=== PATIENT | male | born 2005 | race Caucasian/White ===

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

== ENCOUNTER 2024-06-14 11:45 | Outpatient (REF) | payer SELFPAY ==
[2024-06-14 13:09] LABS: MANUAL DIFF FLAG NO
[2024-06-14 13:23] LABS: Basophils Percent Auto 0.8 % (0-2); Eosinophils Absolute Auto 0.2 X10*3/uL (0.0-0.4); Eosinophils Percent Auto 4.3 % (0-4); Hemoglobin 15.7 g/dl (14.0-18.0); Imm Gran Abs Auto 0.01 X10*3/uL (0.00-0.03); Imm Gran Pct Auto 0.2 % (0.0-0.4); Lymphocytes Absolute Auto 1.7 X10*3/uL (1.2-4.9); Lymphocytes Percent Auto 34.6 % (20-40); Mean Corpuscular HGB Conc 34.9 g/dl (31.0-36.0); Mean Corpuscular Hemoglobin 30.3 pg (27.0-33.0); Mean Corpuscular Volume 86.9 fL (80.0-98.0); Mean Platelet Volume 9.8 fL (9.4-12.4); Monocytes Absolute Auto 0.4 X10*3/uL (0.1-1.2); Monocytes Percent Auto 8.4 % (2-11); Neutrophils Absolute Auto 2.5 x10*3/uL (2.0-8.3); Neutrophils Percent Auto 51.7 % (45-73); Platelet Count 258 X10*3/uL (160-400); Red Blood Count 5.18 X10*6/uL (4.60-5.80); Red Cell Distribution Width 12.2 % (11.0-16.0); White Blood Count 4.9 X10*3/uL (4.8-10.8)
[2024-06-14 13:57] LABS: Iron 101 mcg/dL (45-160); Percent Iron Saturation 31 % (15-50); Total Iron Binding Capacity 323 mcg/dL (228-428); Unsaturated Iron Binding 222 ug/dL
[2024-06-14 14:03] LABS: Folate 8.5 ng/mL (> or = 4.0); Vitamin B12 330 pg/mL (200-900); Vitamin D 25-OH Total 47.5 ng/mL (>30)
[2024-06-15 08:24] LABS: HIV Num 1 2.48 S/CO (0.00-0.99)
[2024-06-15 10:27] LABS: HIV AB/AG Nonreactive (Nonreactive); HIV Num 2 0.08 S/CO; HIV Num 3 0.08 S/CO
== END 2024-06-14 11:46 | disposition home or self-care (01) ==
LOC: HO.HHCL 11:45
PROVIDERS: Visit Provider Emergency Medicine
DX: K12.0 Recurrent oral aphthae (principal)
CPT/HCPCS: 36415; 82306; 82607; 82746; 83540; 85025; 87389

== ENCOUNTER → 2024-06-15 09:00 | Outpatient (BNVA) | payer SELFPAY | PROVIDERS: PCP Nurse Practitioner Family; Visit Provider Physician Assistant Medical | DX: Z02.79 Encounter for issue of other medical certificate (principal) ==

== ENCOUNTER 2025-02-17 13:13 | Emergency (ER) | payer MEDICAID, SELFPAY ==
--- NOTE | ~2025-02-17 | CT_ITS ---
CLINICAL HISTORY: rlq pain CT abdomen and pelvis without IV contrast. COMPARISON: None FINDINGS: Partially visualized lung bases are unremarkable. Normal gallbladder. Noncontrast appearance of the liver, spleen, pancreas and adrenal glands are unremarkable. No hydronephrosis or hydroureter. No renal or ureteral calculus. Appendix is normal in caliber measuring up to 4 mm. No periappendiceal or pericecal inflammatory changes. Mild colonic stool burden. No bowel obstruction. Several normal-sized and prominent mesenteric lymph nodes most pronounced along the mesenteric root and in the right lower quadrant. Normal abdominal aorta. Urinary bladder is unremarkable given degree of distention. No inguinal lymphadenopathy. No acute fracture or suspicious bone lesion. IMPRESSION: 1. No evidence of renal obstruction. No renal or ureteral calculus bilaterally. 2. No evidence of appendicitis. 3. Multiple normal-sized and prominent mesenteric lymph nodes most pronounced along the mesenteric root and in the right lower quadrant. Nonspecific findings can be associated with an underlying infectious or inflammatory process. This document has been electronically signed by: Willam Sandhu MD on 02/17/2025 17:10:17
[2025-02-17 13:17] VITALS: BP 123/89; BP 132/84; PULSE 75; PULSE 90; RESP 22; TEMP 36.9; O2SAT 100; O2SAT 98; BMI 20.6
--- NOTE | 2025-02-17 13:19 | ED_ITS ---
HPI - Abdominal Pain General Chief Complaint: Abdominal Pain Stated Complaint: SEVERE LOWER RT ABD PAIN X 20 MINUTES PER EMS Time Seen by Provider: 02/17/25 14:17 Related Data Allergies Allergy/AdvReac Type Severity Reaction Status Date / Time No Known Allergies Allergy Verified 02/17/25 13:21 [facility] Social History Social History Alcohol intake: current Alcohol intake frequency: a few times a week Smoked in Last 30 Days: No Use of substances other than those prescribed or required for medical reasons: Yes Substance Use Type: Marijuana Advance Directives: No Advance Directives Information Provided: No Physical Exam ED Vital Signs: Vital Signs - 24 hr 02/17/25 13:17 02/17/25 14:46 Temperature 98.5 F Pulse Rate 90 63 Respiratory Rate 22 H 16 Blood Pressure 123/89 106/60 Pulse Oximetry 100 96 Oxygen Delivery Method Room Air Room Air BMI result Body Mass Index 20.6 Course Course Course Narrative: This is a Rapid Medical Exam performed in triage by Sofya Montgomery PA-C. Full HPI, ROS and PE to be performed by primary ED provider. 19 yo F presenting to the ED via EMS c/o RLQ abd pain [id number] described as stabbing with assoc N/V. States was driving [place] [employer] when pain started. Denies testicular pain at present, however states did have testicular pain when pain initially started PE: uncomfortable, abd soft w/RLQ ttp Plan: labs, UA Medical Decision Making Lab Data 02/17/25 13:31 02/17/25 13:31 Labs: Lab Results 02/17/25 02/17/25 Range/Units 13:31 14:49 WBC 5.6 (4.8-10.8) X10*3/uL RBC 5.52 (4.60-5.80) X10*6/uL Hgb 16.5 (14.0-18.0) g/dl Hct 46.0 (42.0-52.0) % MCV 83.3 (80.0-98.0) fL MCH 29.9 (27.0-33.0) pg MCHC 35.9 (31.0-36.0) g/dl RDW 12.4 (11.0-16.0) % Plt Count 313 (160-400) X10*3/uL MPV 8.7 L (9.4-12.4) fL Immature Gran % (Auto) 0.4 (0.0-0.4) % Neut % (Auto) 53.2 (45-73) % Lymph % (Auto) 35.8 (20-40) % [place] % (Auto) 7.4 (2-11) % Eos % (Auto) 2.3 (0-4) % Baso % (Auto) 0.9 (0-2) % Lymph # (Auto) 2.0 (1.2-4.9) X10*3/uL [place] # (Auto) 0.4 (0.1-1.2) X10*3/uL Eos # (Auto) 0.1 (0.0-0.4) X10*3/uL Baso # (Auto) 0.1 (0.0-0.2) X10*3/uL Abs Immat Gran (auto) 0.02 (0.00-0.03) X10*3/uL Absolute Neuts (auto) 3.0 (2.0-8.3) x10*3/uL Absolute Nucleated RBC 0.000 (0.0-0.012) X10*3/uL Nucleated RBC % (auto) 0.0 (0.0-0.2) /100WBC Sodium 141 (135-145) mmol/L Potassium 3.5 (3.3-5.1) mmol/L Chloride 108 (96-108) mmol/L Carbon Dioxide 22 (22-29) mmol/L Anion Gap 15 (12-20) BUN 13 (9-16) mg/dL Creatinine 0.84 (0.5-1.4) mg/dL Estim Creat Clear Calc 111.3 Estimated GFR > 60 Random Glucose 99 (60-115) mg/dL Calcium 9.5 (8.4-10.2) mg/dL Magnesium 1.7 (1.6-2.6) mg/dL Total Bilirubin 0.5 (0.0-1.0) mg/dL Direct Bilirubin 0.2 (0.0-0.5) mg/dL AST 37 (5-37) U/L ALT 65 H (0-40) U/L Alkaline Phosphatase 112 (39-117) U/L Total Protein 7.5 (6.5-8.0) g/dL Albumin 4.6 (3.5-5.0) g/dL Lipase 30 (8-78) U/L Urine Color Yellow Urine Appearance Clear Urine pH >= 9.0 (5.0-9.0) Ur Specific [place] 1.020 (1.005-1.025) Urine Protein 30 (1+) H (Neg-Trace) mg/dL Urine Glucose (UA) Negative (Negative) mg/dL Urine Ketones 15 (Negative) mg/dL Urine Blood Small (1+) H (Negative) Urine Nitrite Negative (Negative) Ur Leukocyte Esterase Negative (Negative) Urine RBC >20 H (0-2) /HPF Urine WBC 6-10 H (0-5) /HPF Ur Squamous Epith Cells 0-2 (0-2) /HPF Urine Bacteria None Seen (None Seen) Hyaline Casts 0-2 (0-2) /LPF Discharge Plan Discharge Clinical Impression: Abdominal pain Patient Disposition: Left W/O Completing Treatment Discharge Date/Time: 02/17/25 16:53
[2025-02-17 13:36] LABS: MANUAL DIFF FLAG NO
[2025-02-17 13:39] LABS: Basophils Absolute Auto 0.1 X10*3/uL (0.0-0.2); Basophils Percent Auto 0.9 % (0-2); Eosinophils Absolute Auto 0.1 X10*3/uL (0.0-0.4); Eosinophils Percent Auto 2.3 % (0-4); Hemoglobin 16.5 g/dl (14.0-18.0); Imm Gran Abs Auto 0.02 X10*3/uL (0.00-0.03); Imm Gran Pct Auto 0.4 % (0.0-0.4); Lymphocytes Percent Auto 35.8 % (20-40); Mean Corpuscular HGB Conc 35.9 g/dl (31.0-36.0); Mean Corpuscular Hemoglobin 29.9 pg (27.0-33.0); Mean Corpuscular Volume 83.3 fL (80.0-98.0); Mean Platelet Volume 8.7 fL (9.4-12.4); Monocytes Absolute Auto 0.4 X10*3/uL (0.1-1.2); Monocytes Percent Auto 7.4 % (2-11); Neutrophils Percent Auto 53.2 % (45-73); Platelet Count 313 X10*3/uL (160-400); Red Blood Count 5.52 X10*6/uL (4.60-5.80); Red Cell Distribution Width 12.4 % (11.0-16.0); White Blood Count 5.6 X10*3/uL (4.8-10.8)
[2025-02-17 13:54] LABS: Alanine Aminotransferase 65 U/L (0-40); Albumin Level 4.6 g/dL (3.5-5.0); Alkaline Phosphatase 112 U/L (39-117); Anion Gap 15 (12-20); Aspartate Amino Transferase 37 U/L (5-37); Bilirubin Direct 0.2 mg/dL (0.0-0.5); Bilirubin Total 0.5 mg/dL (0.0-1.0); Blood Urea Nitrogen 13 mg/dL (9-16); Calcium 9.5 mg/dL (8.4-10.2); Carbon Dioxide 22 mmol/L (22-29); Chloride 108 mmol/L (96-108); Creatinine Clr Calc Pharmacy 111.3; Estimated Glomerular Filt Rate > 60; Glucose Random 99 mg/dL (60-115); Lipase 30 U/L (8-78); Magnesium 1.7 mg/dL (1.6-2.6); Potassium 3.5 mmol/L (3.3-5.1); Sodium 141 mmol/L (135-145); Total Protein 7.5 g/dL (6.5-8.0)
[2025-02-17 14:46] VITALS: BP 106/60; PULSE 63; RESP 16; O2SAT 96
[2025-02-17 14:56] LABS: Appearance Urine Clear; Color Urine Yellow; Glucose Urine UA Negative (Negative); Leukocyte Esterase Urine Negative (Negative); Nitrite Urine Negative (Negative); PH >= 9.0 (5.0-9.0); UMIC TRIGGER UACC YES; Urine Blood Small (1+) (Negative); Urine Ketones 15 mg/dL (Negative); Urine Protein 30 (1+) mg/dL (Neg-Trace)
[2025-02-17 14:58] LABS: Bacteria Urine None Seen (None Seen); Hyaline Casts Urine 0-2 /LPF (0-2); RBC Urine >20 /HPF (0-2); Squamous Epithelial Cell Urine 0-2 /HPF (0-2); UACC Culture Trigger YES
--- NOTE | 2025-02-17 16:52 | PC.NURSE ---
Patient requesting to leave , does not want to wait for CT results. Provider aware.
--- NOTE | 2025-02-17 16:52 | PC.NURSE ---
Patient stating he is not waiting an longer and needs to leave. Provider stating he is not discharging patient. Patient exited facility
--- OUTSIDE RECORDS SUMMARY | 2025-02-17 17:39 | XMS_ITS | Encounter Summary ---
Author Organization [employer] [facility] Address [address] [place] [address] [address] [place] [address] Care Team Providers Care Mud Mixer Helper Name Role Phone Nalini Gusman NP Primary Care Provider [phone] Reason for Visit * Reason Comments Med Refill Encounter Details Date Type Department Care Team ([facility] Contact Info) Description 01/26/2024 Refill [facility] MEDICINE [address] [place] [address] Nalini Gusman NP [address] [place] [address] Social History Tobacco Use Types Packs/Day Years Used Date Smoking Tobacco: Never Assessed Sex and Gender Information Value Date Recorded Sex Assigned at Male 09/09/2022 10:17 AM EDT Legal Sex Male 10:17 AM EDT Gender Identity Choose not to disclose 10:17 AM EDT Sexual Orientation Choose not to disclose 2021 10:17 AM EDT documented as of this encounter Miscellaneous Notes * Telephone Encounter - Nalini Gusman NP - 01/26/2024 2:05 PM EDT Approving, but needs appt for additional refills. documented in this encounter Plan of Treatment Not on file documented as of this encounter Visit Diagnoses Not on filedocumented in this encounter Care Teams Mud Mixer Helper Relationship Specialty Start Date End Date Nalini Gusman NP [address] [place] [address] PCP - General Family Medicine 08/15/23 documented as of this encounter
--- OUTSIDE RECORDS SUMMARY | 2025-02-17 17:39 | XMS_ITS | Encounter Summary ---
Author Organization [employer] Address [address] [place] [address] [address] [place] [address] Care Team Providers Care Bacteriologist Food Name Role Phone Nalini Gusman NP Primary Care Provider [phone] Reason for Visit * Reason Onset Date Comments Med Refill 11/28/2023 Encounter Details Date Type Department Care Team ([facility] st Contact Info) Description 11/28/2023 Refill [facility] MEDICINE [address] [place] [address] Nalini Gusman NP [address] [place] [address] Social History Tobacco Use Types Packs/Day Years [...] Telephone Encounter - Nalini Gusman NP - 11/28/2023 5:13 PM EST Approving, but needs appt for additional refills. * Telephone Encounter - Malena Gaitan LPN - 11/28/2023 2:58 PM EST Last seen 09/04/22. * Telephone Encounter - Tyesha Pablo - 11/28/2023 2:45 PM EST TC from pt requesting medication refill. Medications needing refill : [facility] Saline Nasal [place] 0.65 % nasal spray Loratadine 10MG Fluoxetine 20 MG Prilosec 20 MG Ibuprofen 200 Aerochamber Plus Flow-Vu Albuterol Inhaler To be sent to: [facility]/pharmacy #[id number] [place], [place] - [address] [place] [address] documented in this encounter Plan of Treatment Not on file documented as of this encounter Visit Diagnoses Not on filedocumented in this encounter Care Teams Bacteriologist Food Relationship Specialty Start Date End Date Nalini Gusman NP [address] [place] [address] PCP - General Family Medicine 08/15/23 documented as of this encounter
--- OUTSIDE RECORDS SUMMARY | 2025-02-17 17:39 | XMS_ITS | Encounter Summary ---
Author Organization [employer] [facility] Address [address] [place] [address] [address] [address] Care Team Providers Care Seafood Team Member Name Role Phone Nalini Gusman NP Primary Care Provider [phone] Reason for Visit * Reason Comments Med Refill Encounter Details Date Type Department Care Team ([facility] Contact Info) Description 12/28/2023 Refill [facility] MEDICINE [address] [place] [address] Nalini Gusman NP [address] [place] [address] Social History Tobacco Use Types Packs/Day Years [...] Telephone Encounter - Nalini Gusman NP - 12/31/2023 5:10 AM EST Approving, but needs appt for additional refills. documented in this encounter Plan of Treatment Not on file documented as of this encounter Visit Diagnoses Not on filedocumented in this encounter Care Teams Seafood Team Member Relationship Specialty Start Date End Date Nalini Gusman NP [address] [place] [address] PCP - General Family Medicine 08/15/23 documented as of this encounter
--- OUTSIDE RECORDS SUMMARY | 2025-02-17 17:39 | XMS_ITS | Encounter Summary ---
Author Organization [employer] Address [address] [facility] 7t [place] [address] Care Team Providers Care Assistant Research Scientist Name Role Phone Nalini Gusman NP Primary Care Provider [phone] Reason for Visit * Reason Comments Med Refill Encounter Details Date Type Department Care Team ([facility] Contact Info) Description 09/09/2024 Refill [facility] MEDICINE [address] [place] [address] Nalini Gusman NP [address] [place] [address] Social History Tobacco Use Types Packs/Day Years Used Date Smoking Tobacco: Never Passive Smoke Exposure: Never Smokeless Tobacco: Current Comments:THC oil Alcohol Answer Date Recorded How often do you have a drink containing alcohol ? 1 06/23/2024 How many drinks containing a lcohol do you have on a typical day when you are drinking? 0 06/23/2024 How often do you have six or more drinks on one occasion? 0 06/23/2024 Depression Answer Date Recorded Patient Health Questionnaire-9 Score 0 06/23/2024 Patient Health Questionnaire-9 Score 0 06/23/2024 Last PHQ-9: Questionnaire Data Not on file 0 06/23/2024 Housing Stability Answer Date Recorded What is your housing situation today? I have juancarlos campos 06/23/[address] you li ve. Do you have problems with any of the following? None of the above 06/23/2024 Food Insecurity Answer Date Recorded Within the past 12 months, y ou worried that your food would run out before you got money to buy more: Never True 06/23/2024 Within the past 12 months,th e food you bought just didn't last and you didn't have enough money to get more: Never True Transportation Answer Date Recorded In the past 12 months, has l ack of transportation kept you from medical appts, meetings, work or from getting things needed for daily living? No 06/23/2024 Utilities Answer Date Recorded In the past 12 months, has t he electric, gas, oil or water company threatened to shut off services in your home? No 06/23/2024 Depression Answer Date Recorded Patient Health Questionnaire-2 Score 0 06/23/2024 Internet Access Answer Date Recorded Internet Access Q1 Yes 07/12/2024 Internet Access Q2 Not on file 07/12/2024 Sex and Gender Information Value Date Recorded Sex Assigned at Male 09/09/2022 10:17 AM EDT Legal Sex Male 10:17 AM EDT Gender Identity Choose not to disclose 10:17 AM EDT Sexual Orientation Choose not to disclose 2021 10:17 AM EDT documented as of this encounter Plan of Treatment Not on file documented as of this encounter Visit Diagnoses Not on filedocumented in this encounter Additional Health Concerns Assessment Noted Time PHQ-9 Depression Total Score: 0 06/23/20 24 2:08 PM EDT documented as of this encounter Care Teams Assistant Research Scientist Relationship Specialty Start Date End Date Nalini Gusman NP [address] [place] [address] PCP - General Family Medicine 08/15/23 documented as of this encounter
--- OUTSIDE RECORDS SUMMARY | 2025-02-17 17:39 | XMS_ITS | Clinical Summary ---
Author Organization [employer] Address [address] [facility] 7t [place] [address] Care Team Providers Care Tumbler Drier Operator Name Role Phone Nalini Gusman NP Primary Care Provider [phone] Allergies No known active allergies Medications acetaminophen (Tylenol) 500 MG tablet Take 2 tablets (1,000 mg) by mouth every 6 (six) hours if needed for moderate pain or fever for up to 25 doses. 30 tablet 06/14/2024 Active albuterol (Ventolin HFA) 108 (90 Base) MCG/ACT inhaler INHALE 2 PUFFS BY MOUTH EVERY 4 TO 6 HOURS IF NEEDED 18 g 2 06/14/2024 Active Spacer/Aero-Hol ding Chambers (AeroChamber Plus Omar-Vu Medium) misc USE WITH INHALER 1 each 06/14/2024 06/14/20 25 Active amoxicillin (Amoxil) 500 MG capsule TOME 1 C PSULA POR V A ORAL CUATRO VECES AL D A UNTIL GONE 06/18/2024 Active Active Problems Problem Noted Date Diagnosed Date Routine health maintenance 06/23/2024 Assessment & Plan (06/23/2024 2:58 PM EDT): -age appropriate screening up to date except for STI screening, he refuses -low cardiovascular risk -mental health screening positive for anxiety -healthy social behaviors encouraged -anticipatory guidance reviewed: diet, exercise Night sweats 06/23/2024 Assessment & Plan (06/23/2024 3:58 PM EDT): -unclear etiology -HIV negative, normal CBC, iron panel, B12 and folate as of 06/14/24 -ordered TSH, A1C, BMP, hepatitis, to evaluate for organic causes -T-spot to rule out TB in setting of unexplained weight loss -assess use of other substances Gastroesophageal reflux disease 09/05/2022 Assessment & Plan (06/23/2024 3:03 PM EDT): -stable per patient. Aware of foods that cause flares and tries to avoid them Mild persistent asthma 03/27/2017 Assessment & Plan (06/23/2024 3:02 PM EDT): -stable at this time -has albuterol inhaler for as needed use Allergic rhinitis 03/11/2016 Anxiety 03/11/2016 Assessment & Plan (06/23/2024 3:53 PM EDT): ECHO-7 Total Score: 19 (06/23/2024 3:02 PM) -declined medication intervention -discussed deep breathing, meditation, and daily physical activity for management -advised to trial OTC magnesium -follow-up 6 weeks Encounters Date Type Department Care Team Description 01/21/2025 Population Health Risk Score [facility] (C[facility]) Department [address] [place] [address], [place] [id number] Provider, Population Health Generic from Last 3 Months Immunizations Name Administration Dates Next Due DTaP 04/18/2009,12/29/2005,2004 DTaP / Hep B / IPV 2004,2004 HPV 9-Valent 08/23/2016,03/11/2016 Hep A, ped/adol, 2 dose 02/07/2014,11/13/2012 Hib (HbOC) 12/27/2005, 5,2004,07/10 IPV 04/18/2009,2004 Influenza injectable quadriv alent preservative free 09/04/2022,08/09/2021,09/07/2020,01/17,08/23/2016 Influenza, IIV3, injectable 08/05/2011,0 02/20/2010,10/24/2009,08/19 Influenza, Split (incl. aracelis fied surface antigen) 02/07/2014,11/13/2012 Influenza, injectable, quadr ivalent, preservative free, pediatric 09/13/2014 MMR 04/18/2009,05/21/2005 Meningococcal MCV4P ACYW-135 09/07/2020,03/11/20 16 Pfizer Covid-19 Vaccine 12+ 04/01/2021, Pneumococcal Conjugate PCV 7 2004,09/10/20 04,2004 Tdap 03/11/2016 Varicella 04/18/2009,05/21/2005 Family History Medical History Relation Name Comments No Known Problems Father Diabetes Maternal Grandfather Diabetes Maternal Grandmother No Known Problems Mother Diabetes Paternal Grandmother Relation Name Status Comments Father Maternal Grandfather Maternal Grandmother Mother Paternal Grandmother Social History Tobacco Use Types Packs/Day Years Used Date Smoking Tobacco: Never Passive Smoke Exposure: Never Smokeless Tobacco: Current Tobacco Cessation:Ready to Q uit: Not Asked Comments:THC oil Alcohol Answer Date Recorded How [...] not to disclose 2021 10:17 AM EDT Last Filed Vital Signs Vital Sign Reading Time Taken Comments Blood Pressure 113/69 06/23/2024 2:07 PM EDT Pulse 55 06/23/2024 2:07 PM EDT Temperature 37.1 ??C (98.7 ??F) 06/23/2024 2:07 PM ED T Respiratory Rate 25 06/23/2024 2:07 PM EDT Oxygen Saturation 91% 06/23/2024 2:07 PM EDT Inhaled Oxygen Concentration - - Weight 53.1 kg (117 lb) 06/23/2024 2:07 PM EDT Height 167.6 cm (5' 6 ) 06/23/2024 2:07 PM EDT Body Mass Index 18.88 06/23/2024 2:07 PM EDT Plan of Treatment Health Maintenance Due Date Last Done Comments Chlamydia and Gonorrhea Screening 2004 Lipid Panel 2004 Family Planning (PISQ) 2019 Hepatitis C Screening 2022 Pneumococcal Vaccine: Pediatrics (0 to 5 Years) and At-Risk Patients (6 to 49) Years) (1 of 2 - PCV) 2023 2004, 2004, 2004 COVID-19 Vaccine (3 - season) 2024 04/01/2021, 03/11/2021 Influenza Vaccine (#1) 2024 2, 08/09/2021, 09/07/2020, Additional history exists Alcohol/Substance Use Screening 06/23/2025 06/23/2024 Depression Screening 06/23/2025 06/23/2024, 06/23/20 24 SDOH Screening 06/23/2025 06/23/2024 Tobacco Screening 06/23/2025 06/23/2024 DTaP/Tdap/Td Vaccines (7 - Td or Tdap) 03/11/2026 03/11/2016, 04/18/2009, 12/29/2005, Additional history exists Zoster Vaccines (1 of 2) 2054 RSV Patients and Patients Aged 60 years or older (1 - 1-dose 75+ series) 2079 Hepatitis B Vaccines Completed 2004, 2004, 2004, Additional history exists HIB Vaccines Completed 12/27/2005, 02/2005, 2004, Additional history exists IPV Vaccines Completed 04/18/2009, 02/2005, 2004, Additional history exists Hepatitis A Vaccines Completed 02/07/2014, 11/13/19 13 HPV Vaccines Completed 08/23/2016, 03/11/2016 Meningococcal Vaccine Completed 09/07/2020, 016 HIV Screening Completed 06/14/2024 RSV under 20 months Aged Out No longe r eligible based on patient's age to complete this topic Rotavirus Vaccines Aged Out No longer eligible based on patient's age to complete this topic Procedures Procedure Name Priority Date/Time Associated Diagnosis Comments HIV 1/2 ANTIGEN/ANTIBODY, FOURTH GENERATION W/RFL Routine 06/14/2024 11:50 AM EDT Aphthous stomatitis from Last 3 Months or Most Recently Relevant to Health Maintenance Results * HIV-1/2 Antigen and Antibodies, Fourth Generation, with Reflexes (06/14/2024 11:50 AM EDT) HIV AB/AG Nonreactive Nonreactive [facility] Comment:HIV-1 p24 Ag and/or HIV-1/HIV-2 Ab not detected.A test result that is nonreactive does not exclude thepossibility of exposure to or infection with HIV-1 and/orHIV-2. Nonreactive results in this assay for individualswith prior exposure to HIV-1 and/or HIV-2 may be due toantigen and antibody levels that are below the limit ofdetection of this assay.The UBmatrixniViaCLIX HIV Ag/Ab Combo assay result andsupplemental assay results should be interpreted inconjunction with the patient's clinical presentation,history and other laboratory results. If the results areinconsistent with clinical evidence, additional testing issuggested to confirm the result. Blood Venous blood specimen / Unknown 06/14/2024 11:50 AM EDT 06/14/2024 1:10 PM EDT us Octavio Aly MD LAB BLOOD ORDERABLES Final Resul t [facility] [address] [place] [address] [phone] from Last 3 Months or Most Recently Relevant to Health Maintenance Insurance [place] [facility] Care Teams Tumbler Drier Operator Relationship Specialty Start Date End Date Nalini Gusman NP [address] [place] [address] PCP - General Family Medicine 08/15/23
--- NOTE | 2025-02-17 17:42 | ED_ITS ---
HPI - Abdominal Pain General Chief Complaint: Abdominal Pain Stated Complaint: SEVERE LOWER RT ABD PAIN X 20 MINUTES PER EMS Time Seen by Provider: 02/17/25 14:17 History of Present Illness HPI narrative: Patient is a 19-year-old male presents today with having abdominal pain mainly on the right side radiating from the flank area to the right lower quadrant. There is 1 episodes of nausea there is no vomiting. Patient is from home. No fever no chills. No history of kidney stones. No history of abdominal surgery. Patient claims symptom was extreme for about half an hour to an hour subsequently improved. Then came to the ED for help because of the excruciating belly pain. No significant past medical history in the past. Related Data Allergies Allergy/AdvReac Type Severity Reaction Status Date / Time No Known Allergies Allergy Verified 02/17/25 13:21 Review of Systems Review of Systems Positive abdominal pain Yes all other systems are reviewed and are negative PMFSH Past Medical History Attestation statement: The following information was validated with the patient. Social History Social History Alcohol intake: current Alcohol intake frequency: a few times a week Smoked in Last 30 Days: No Use of substances other than those prescribed or required for medical reasons: Yes Substance Use Type: Marijuana Advance Directives: No Advance Directives Information Provided: No Physical Exam ED Vital Signs: Vital Signs - 24 hr 02/17/25 13:17 02/17/25 14:46 Temperature 98.5 F Pulse Rate 90 63 Respiratory Rate 22 H 16 Blood Pressure 123/89 106/60 Pulse Oximetry 100 96 Oxygen Delivery Method Room Air Room Air BMI result Body Mass Index 20.6 Appearance: Alert. Oriented X3. No acute distress. Eyes: Pupils equal, round and reactive to light. ENT: Pharynx normal. Neck: Normal inspection. Neck supple. No lymph nodes noted. No crepitus CVS: Normal heart rate and rhythm. Pulses normal. Normal S1 and S2 Respiratory: No respiratory distress. Breath sounds normal. No Wheezing. No rales Abdomen: Soft and nontender. No rigidity. No distention. good BS x4 Skin: Skin warm and dry. Normal skin color. Normal skin turgor. Extremities: No lower extremity edema. Neurovascular intact to all extremities. No Lacerations. No Rash Neuro: Oriented X 3. No motor deficit. No sensory deficit. Moving all extermities. No slurred speech Medical Decision Making Medical Decision Making [facility] Narrative: Patient well appearing no acute distress. Complaining of right-sided abdominal pain that had somewhat improved with time. His white count was normal hemoglobin is normal his electrolytes are normal LFTs are normal. Patient did not want to wait for his CAT scan results to return he eloped from the emergency department. His urine showed positive blood but no evidence of infection. I reviewed his CT scan abdomen pelvis results after he has already left. It did not show any acute kidney stone no appendicitis nonspecific lymph node was noted. Patient in stable condition eloped from the emergency department. Differential Diagnosis Differential Diagnoses: The differential diagnosis associated with the presentation includes Appendicitis, kidney stone, UTI Admission/Observation Consideration of admission/observation: Escalation of care including admission/observation considered Lab Data [facility] Lab Attestation statement: I reviewed the patient's lab results. 02/17/25 13:31 02/17/25 13:31 Labs: Lab Results 02/17/25 02/17/25 Range/Units 13:31 14:49 WBC 5.6 (4.8-10.8) X10*3/uL RBC 5.52 (4.60-5.80) X10*6/uL Hgb 16.5 (14.0-18.0) g/dl Hct 46.0 (42.0-52.0) % MCV 83.3 (80.0-98.0) fL MCH 29.9 (27.0-33.0) pg MCHC 35.9 (31.0-36.0) g/dl RDW 12.4 (11.0-16.0) % Plt Count 313 (160-400) X10*3/uL MPV 8.7 L (9.4-12.4) fL Immature Gran % (Auto) 0.4 (0.0-0.4) % Neut % (Auto) 53.2 (45-73) % Lymph % (Auto) 35.8 (20-40) % Jenkins % (Auto) 7.4 (2-11) % Eos % (Auto) 2.3 (0-4) % Baso % (Auto) 0.9 (0-2) % Lymph # (Auto) 2.0 (1.2-4.9) X10*3/uL Jenkins # (Auto) 0.4 (0.1-1.2) X10*3/uL Eos # (Auto) 0.1 (0.0-0.4) X10*3/uL Baso # (Auto) 0.1 (0.0-0.2) X10*3/uL Abs Immat Gran (auto) 0.02 (0.00-0.03) X10*3/uL Absolute Neuts (auto) 3.0 (2.0-8.3) x10*3/uL Absolute Nucleated RBC 0.000 (0.0-0.012) X10*3/uL Nucleated RBC % (auto) 0.0 (0.0-0.2) /100WBC Sodium 141 (135-145) mmol/L Potassium 3.5 (3.3-5.1) mmol/L Chloride 108 (96-108) mmol/L Carbon Dioxide 22 (22-29) mmol/L Anion Gap 15 (12-20) BUN 13 (9-16) mg/dL Creatinine 0.84 (0.5-1.4) mg/dL Estim Creat Clear Calc 111.3 Estimated GFR > 60 Random Glucose 99 (60-115) mg/dL Calcium 9.5 (8.4-10.2) mg/dL Magnesium 1.7 (1.6-2.6) mg/dL Total Bilirubin 0.5 (0.0-1.0) mg/dL Direct Bilirubin 0.2 (0.0-0.5) mg/dL AST 37 (5-37) U/L ALT 65 H (0-40) U/L Alkaline Phosphatase 112 (39-117) U/L Total Protein 7.5 (6.5-8.0) g/dL Albumin 4.6 (3.5-5.0) g/dL Lipase 30 (8-78) U/L Urine Color Yellow Urine Appearance Clear Urine pH >= 9.0 (5.0-9.0) Ur Specific [place] 1.020 (1.005-1.025) Urine Protein 30 (1+) H (Neg-Trace) mg/dL Urine Glucose (UA) Negative (Negative) mg/dL Urine Ketones 15 (Negative) mg/dL Urine Blood Small (1+) H (Negative) Urine Nitrite Negative (Negative) Ur Leukocyte Esterase Negative (Negative) Urine RBC >20 H (0-2) /HPF Urine WBC 6-10 H (0-5) /HPF Ur Squamous Epith Cells 0-2 (0-2) /HPF Urine Bacteria None Seen (None Seen) Hyaline Casts 0-2 (0-2) /LPF Independent Historian Clinical information obtained from an independent historian. History obtained from or confirmed by: Spouse Social Determinants Patient?s care significantly limited by Social Determinants of Health including: Problems related to primary support group Discharge Plan Discharge Clinical Impression: Abdominal pain Patient Disposition: Left W/O Completing Treatment Discharge Date/Time: 02/17/25 16:53
== END 2025-02-17 16:53 | disposition left against medical advice (07) ==
PROVIDERS: Physician Assistant; Emergency Provider Emergency Medicine Emergency Medical Services; PCP Nurse Practitioner Family
DX: R10.31 Right lower quadrant pain (principal); Z79.899 Other long term (current) drug therapy
CPT/HCPCS: 36415; 74176; 80048; 80076; 81001; 83690; 83735; 85025; 87086; 99284

== ENCOUNTER → 2025-02-17 16:15 | Outpatient (BNV) | payer MEDICAID, SELFPAY | PROVIDERS: Emergency Provider Emergency Medicine Emergency Medical Services; PCP Nurse Practitioner Family; Visit Provider Radiology Diagnostic Radiology | DX: R10.31 Right lower quadrant pain (principal) | CPT/HCPCS: 74176 ==